=== PATIENT | male | born 1955 | race Caucasian/White ===

== ENCOUNTER 2019-09-30 09:14 | Emergency (ER) | payer MEDICARE, OTHER ==
--- NOTE | 2019-09-30 10:13 | RAD ---
EXAM DESCRIPTION: Chest,1 View CLINICAL HISTORY: 63 years Male, chest pain COMPARISON: None. FINDINGS: One view/radiograph Heart size and pulmonary vessels are within normal limits. There is no pneumothorax or pleural effusion. The lungs are clear bilaterally. The soft tissues are unremarkable. No acute osseous findings. IMPRESSION: No acute cardiopulmonary abnormality. Electronically signed by: Trenton Barreto MD 09/30/2019 10:11 AM CDT
[2019-09-30] MEDS ORDERED: MORPHINE SULFATE INJ 10 MG/ML VIAL IV ONE (10:30)
--- NOTE | 2019-09-30 10:31 | ED.PDOC ---
History of Present Illness - General Chief Complaint: GI Problem Stated Complaint: LUQ pain Time Seen by Provider: 09/30/19 09:55 Source: patient, family Exam Limitations: no limitations - History of Present Illness Initial Comments: COLICKY, INTERMITTED LUQ PAIN (ACHY) X 2 DAYS. RADIATES TO L SCAPULA (SHARP). NO OVERT CP. IMPROVED BY EATING. Timing/Duration: intermittent Severity: severe Improving Factors: eating Worsening Factors: nothing Associated Symptoms: denies symptoms Allergies/Adverse Reactions: Allergies NO KNOWN ALLERGY Allergy (Verified 09/30/19 09:34) Home Medications: Ambulatory Orders Lisinopril 20 mg PO DAILY 09/30/19 Tramadol HCl [Ultram] 50 mg PO Q6HR PRN #15 tab 09/30/19 Review of Systems - Review of Systems Constitutional: States: no symptoms reported EENTM: States: no symptoms reported Respiratory: States: no symptoms reported. Denies: cough, short of breath Cardiology: Denies: chest pain, palpitations Gastrointestinal/Abdominal: States: abdominal pain. Denies: constipation, diarrhea, nausea, vomiting Genitourinary: States: no symptoms reported Musculoskeletal: States: no symptoms reported Skin: States: no symptoms reported Neurological: States: no symptoms reported Endocrine: States: no symptoms reported Hematologic/Lymphatic: States: no symptoms reported All other Systems: Reviewed and Negative Family Medical History - Family History Mother Family History: No Known Physical Exam - Physical Exam General Appearance: Alert, No apparent distress Eye Exam: bilateral normal Ears, Nose, Throat: hearing grossly normal, normal ENT inspection Neck: non-tender, full range of motion Respiratory: chest non-tender, no respiratory distress, no accessory muscle use, crackles - BL, FAINT. Cardiovascular/Chest: normal peripheral pulses, regular rate, rhythm, no JVD Peripheral Pulses: radial,right: 2+, radial,left: 2+ Gastrointestinal/Abdominal: normal bowel sounds, non tender - LUQ NTTP. , soft, no organomegaly, no pulsatile mass Back Exam: normal inspection, no CVA tenderness, no vertebral tenderness Extremity: normal range of motion, non-tender - L SCAPULA, NTTP. PAINLESS LUE MOVEMENT. , normal inspection Neurologic: no motor/sensory deficits, normal mood/affect Skin Exam: normal color, warm/dry Lymphatic: no adenopathy Progress - Progress Progress: 09/30/19 10:29 PT NOT HAVING PAIN ON ER PRESENTATION BUT IS NOW C/O PAIN BUT NO NAUSEA, THUS ORDERING PAIN MED. 09/30/19 10:34 W/U SO FAR NEG TO EXPLAIN PT'S LUQ AND L SUBSCAPULAR REFERRED PAIN (EKG, CARD ENZ, COAGS, CXR, LIPASE/AMYLASE NEG.) CBC AND BMP UNREMARKABLE FOR PT'S PAIN (CBC WBC 11.6; BMP BUN 32). THUS ORDERING CT CHEST (CRACKLES BUT NO SOB) AND ABD (LUQ PAIN). 09/30/19 12:[address] NEG TO EXPLAIN THE PT'S PAIN. (INCIDENTAL: CHEST = INTERSTITIAL THICKENING BUT NO PNE, NO CANCER. ABD = FATTY LIVER.) ETX OF PT'S INTERMITTENT SX IS NOT CLEAR. BY EXCLUSION, COULD BE REFLUX OR GAS PAINS. INSTRUCTED OTC NEXIUM AND GAS X. TRAMADOL IN EVENT HIS SHARP PAINS RETURN. Departure - Departure Clinical Impression: Colicky LUQ abdominal pain, Referred pain Disposition: Discharge to Home or Self Care Condition: Good Departure Forms: ED Discharge - Pt. Copy, Patient Portal Self Enrollment Diet: resume usual diet Activity: increase activity as tolerated Referrals: Markus Bautista III, MD [Primary Care Provider] - 1-2 Weeks Prescriptions: Tramadol HCl [Ultram] 50 mg PO Q6HR PRN #15 tab PRN Reason: Pain Home Medications: Ambulatory Orders Lisinopril 20 mg PO DAILY 09/30/19 Tramadol HCl [Ultram] 50 mg PO Q6HR PRN #15 tab 09/30/19
--- NOTE | 2019-09-30 11:36 | CT ---
EXAM DESCRIPTION: Chest w/o Contrast CLINICAL HISTORY: 2D LUQ ABD PAIN, RADIATING TO L SCAPULA. COMPARISON: None. TECHNIQUE: Noncontrast transaxial CT images of the chest are obtained. This exam was performed according to our departmental dose-optimization program, which includes automated exposure control, adjustment of the mA and/or kV according to patient size and/or use of iterative reconstruction technique . FINDINGS: The heart shows severe coronary artery calcifications. No pathologically enlarged mediastinal, hilar, or axillary lymphadenopathy seen.. No pleural or pericardial effusion. Mild pleural thickening along the inferior oblique fissure on the left. Mild interstitial thickening in the inferior lingula of the left upper lobe. Mild interstitial thickening in the right lower lobe. No acute appearing infiltrate or consolidation. Osseous structures show no aggressive bony lesions. Mild spondylitic changes of the spine are seen. No high-grade spinal canal stenosis or foraminal encroachment is seen. Scapula is unremarkable. Soft tissues of the chest wall are unremarkable. IMPRESSION: Mild interstitial thickening in the lower lobes and lingula of the left upper lobe could represent areas of atelectasis or scarring. Mild spondylitic changes of the thoracic spine are seen. Severe coronary artery calcifications are seen. No CT abnormality of the left scapula is seen. Electronically signed by: Jose Oreilly MD 09/30/2019 11:35 AM CDT
--- NOTE | 2019-09-30 11:43 | CT ---
EXAM DESCRIPTION: Abdomen w/o Contrast CLINICAL HISTORY: 2D LUQ ABD PAIN, RADIATING TO L SCAPULA. COMPARISON: CT chest same day TECHNIQUE: Noncontrast transaxial CT images of the abdomen are obtained. This exam was performed according to our departmental dose-optimization program, which includes automated exposure control, adjustment of the mA and/or kV according to patient size and/or use of iterative reconstruction technique . FINDINGS: Heterogeneous areas of decreased attenuation are seen throughout the right and left lobes of the liver. Mild fatty sparing around the gallbladder fossa is seen. Given the limitations of a noncontrast exam the spleen, pancreas, adrenal glands, and gallbladder are unremarkable. Moderate vascular calcifications are seen without aneurysmal dilatation of the aorta. No nephrolithiasis. No ureteral obstruction. Stomach is unremarkable. Visualized small bowel and colon show no acute findings. Scattered diverticuli of the mostly descending colon are seen without associated inflammatory changes or fluid collections. Osseous structures show mild spondylitic changes of the spine. Mild degenerative changes of the sacroiliac joints are seen. IMPRESSION: Heterogeneous attenuation of the liver suggest geographic areas of fatty infiltration of the liver. Colon diverticulosis without CT evidence of diverticulitis. No nephrolithiasis seen on noncontrast CT imaging. Electronically signed by: Jose Oreilly MD 09/30/2019 11:41 AM CDT
[2019-09-30 12:40] VITALS: O2SAT 95
[2019-09-30 13:06] VITALS: BP 134/93; TEMP 97.2
== END 2019-09-30 13:05 | disposition home or self-care (01) ==
LOC: ER 09:14
DX: R10.12 Left upper quadrant pain (principal); K76.0 Fatty (change of) liver, not elsewhere classified
CPT/HCPCS: 36415; 71045; 71250; 74150; 80048; 82150; 82550; 82553; 83690; 83880; 84484; 85025; 85610; 85730; 93005; J2270